=== PATIENT | male | born 1965 | race Caucasian/White ===

== ENCOUNTER 2024-08-04 14:54 | Outpatient (CLI) | payer OTHER, SELFPAY ==
--- NOTE | ~2024-08-04 | XR_ITS ---
CHEST RADIOGRAPH, PA AND LATERAL CLINICAL HISTORY: Other forms of dyspnea . COMPARISON: None available TECHNIQUE: PA and lateral views of the chest. FINDINGS The cardiomediastinal silhouette is unremarkable. Increased interstitial markings are identified bilaterally, findings suggesting mild pulmonary vascul ar congestion. The lungs are otherwise clear. IMPRESSION: Mild pulmonary vascular congestion without focal infiltrate or effusion. Reviewed, dictated and finalized at location A.
== END 2024-08-04 14:55 | disposition home or self-care (01) ==
LOC: MICIMG 15:03
PROVIDERS: PCP Internal Medicine; Visit Provider Internal Medicine
DX: R06.09 Other forms of dyspnea (principal)
CPT/HCPCS: 71046

== ENCOUNTER 2024-09-01 14:32 | Outpatient (CLI) | payer OTHER, SELFPAY ==
--- NOTE | 2024-09-01 | ECHO_ITS ---
Patient Info Name: eJlani Childers Age: 59 years : 1965 Gender: Male Ht: 72 in Wt: 230 lbs BSA: 2.33 m2 HR: 91 bpm BP: 130 / 95 mmHg Heart Rhythm: Sinus Rhythm Technical Quality: Good Exam Date: 09/01/2024 2:51 PM Exam Location: Echo Lab Patient Status: Outpatient Admit Date: 09/01/2024 Staff Ordering Physician: Angie, Varsha Rosa MD [employer] Agent: Shadia Saunders RDCS Attending Provider: Angie, Varsha Rosa MD Referring Physician: Dereje NOVOA; Exam Type: CA echo dop color flow w con Study Info Indications - NINA Complete two-dimensional, color flow and Doppler transthoracic echocardiogram is performed with contrast to opacify the left ventricle and to improve the deliniation of the left ventricle endocardial borders. Contrast/Agitated Saline Contrast/Ag. Saline: Definity Amount: 2.00 ml Administered By: Shadia Saunders RDCS Existing IV Access: No New IV Access: Left Site Condition: IV removed Summary 1. Left ventricular chamber dimension is severely enlarged. 2. Left ventricular systolic function is severely reduced, estimated at 20-25%. 3. Right ventricular systolic function is normal. 4. Left atrial chamber dimension is severely enlarged. 5. Right atrial chamber dimension is moderately enlarged. 6. There is mild mitral valve regurgitation. 7. There is mild tricuspid valve regurgitation. 8. Pulmonary hypertension, estimated pulmonary arterial systolic pressure is 66 mmHg. Left Ventricle Left ventricular chamber dimension is severely enlarged. Left ventricular systolic function is severely reduced, estimated at 20-25%. There is no increased left ventricular wall thickness. Right Ventricle Right ventricular chamber dimension is normal. Right ventricular systolic function is normal. Left Atria Left atrial chamber dimension is severely enlarged. Right Atria Right atrial chamber dimension is moderately enlarged. Atrial Septum Intact interatrial septum visualized by color flow imaging. Aortic Valve The aortic valve is probable trileaflet. There is no aortic valve stenosis. There is trace aortic valve regurgitation. There is mild aortic valve calcification. Pulmonic Valve The pulmonic valve is not well visualized. There is trace pulmonic regurgitation. Mitral Valve There is mild mitral valve regurgitation. Tricuspid Valve There is mild tricuspid valve regurgitation. Pulmonary hypertension, estimated pulmonary arterial systolic pressure is 66 mmHg. Pericardium/Pleural There is no pericardial effusion. Inferior Vena Cava Dilated inferior vena cava with <50% collapse upon inspiration consistent with elevated right atrial pressure, 15 mmHg. Aorta The aortic root size at the sinus of Valsalva is normal. Left Ventricular Outflow Tract Name Value Normal LVOT 2D LVOT Diameter 2.24 cm LVOT Doppler LVOT Peak Gradient 1 mmHg LVOT Mean Gradient 0 mmHg LVOT VTI 6.74 cm LVOT VTI/AV VTI Ratio 0.63 LVOT Stroke Volume 26.61 ml LVOT CO 2.39 l/min LVOT CI 1.03 L/min/m2 Pulmonic Valve Name Value Normal RVOT Doppler RVOT Peak Gradient 1 mmHg PV Doppler PV Peak Gradient 1 mmHg Tricuspid Valve Name Value Normal TV Regurgitation Doppler TR Peak Velocity 355.44 cm/s TR Peak Gradient 51 mmHg Estimated PAP/RSVP RA Pressure 15 mmHg <=5 PA Systolic Pressure 66 mmHg <36 RV Systolic Pressure 66 mmHg <36 Aorta Name Value Normal Ascending Aorta Ao Root Diameter (MM) 3.10 cm Ao Root Diam Index (MM) 1.33 cm/m2 Aortic Valve Name Value Normal AV Doppler AV Peak Velocity 77.50 cm/s AV Peak Gradient 2 mmHg AV Mean Gradient 1 mmHg AV VTI 10.66 cm AV Area (Cont Eq VTI) 2.50 cm2 >=3.00 AV Area (Cont Eq Pedro) 2.37 cm2 AV Regurgitation 2D LVOT Area 3.95 cm2 AV Regurgitation Doppler AR Decel Time 2 s AR Decel Rawlins 137.84 cm/s2 AR PHT 1 s Ventricles Name Value Normal LV Dimensions 2D/MM IVS Diastolic Thickness (2D) 0.90 cm 0.60-1.00 LVID Diastole (2D) 6.87 cm 4.20-5.80 LVIW Diastolic Thickness (2D) 0.90 cm 0.60-1.00 LVID Systole (2D) 6.18 cm 2.50-4.00 LVOT Diameter 2.24 cm LV Mass (2D Cubed) 272.26 g 88.00-224.00 LV Mass Index (2D Cubed) 0.01 g/cm2 0.00-0.01 Relative Wall Thickness (2D) 0.26 LV Fractional Shortening/Ejection Fraction 2D/MM LV Fractional Shortening (2D) 10 % 25-43 LV EF (2D Teichmeccaz) 21 % 52-72 LV Diastolic Volume (4C MOD) 188.88 ml LV EF (4C MOD) 25 % LV Diastolic Volume (2C MOD) 203.62 ml LV EF (2C MOD) 17 % LV Diastolic Volume (BP MOD) 196.39 ml 62.00-150.00 LV Diastolic Volume Index (BP MOD) 0.08 l/m2 0.03-0.07 LV Systolic Volume (BP MOD) 155.86 ml 21.00-61.00 LV Systolic Volume Index (BP MOD) 0.07 l/m2 0.01-0.03 LV EF (BP MOD) 21 % 52-72 LV Diastolic Length (4C) 9.08 cm LV Systolic Length (4C) 7.99 cm LV Stroke Volume (4C MOD) 47.95 ml Atria Name Value Normal LA Dimensions LA Dimension (MM) 5.73 cm 3.00-4.10 LA Volume (4C A-L) 96.54 ml LA Volume (BP A-L) 89.23 ml RA Dimensions RA Area (4C) 23.17 cm2 <=18.00 Report Signatures
--- OUTSIDE RECORDS SUMMARY | 2024-09-01 14:40 | XMS_ITS | Encounter Summary ---
Author Organization [facility] Address [address] [place] [address] Care Team Providers Care Ground Crewman Aircraft Support Name Role Phone Varsha Reyez MD Primary Care Provider [phone] Encounter Details Date Type Department Care Team (Late st Contact Info) Description 08/06/2024 Results Follow-Up [facility] D[facility]ly [place] [address] [place] [place] [address] Varsha Reyez MD [address] [place] [address] XR CHEST PA AND LATERAL 2 VW, VITAMIN D 25 HYDROXY, CBC WITH DIFFERENTIAL, BASIC METABOLIC PANEL Social History Tobacco Use Types Packs/Day Years Used Date Smoking Tobacco: Former Cigarettes 1 20.4 0 04/23/2004 - 04/23/1979 Smokeless Tobacco: Former Chew Quit: 04/23/2004 Comments:1 can every few day s x few year Alcohol Use Standard Drinks/Week Comments Yes 30 (1 standard drink = 0.6 oz pure alcohol) drinks a few beers after work, 6-12 on weekend days Sex and Gender Information Value Date Recorded Sex Assigned at Not on file 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 Reyez. documented in this encounter Plan of Treatment Upcoming Encounters Date Type Department Care Team (Late st Contact Info) Description 09/04/2024 8:00 AM CDT Office Visit [facility] Drizly [place] [address] [place] [address] Varsha Reyez MD [address] [place] [address] 09/25/2024 8:00 AM CDT Procedure visit [facility] Drizly [place] [address] [place] [address] documented as of this encounter Visit Diagnoses Not on filedocumented in this encounter Care Teams Ground Crewman Aircraft Support Relationship Specialty Start Date End Date Varsha Reyez MD [address] [place] [address] PCP - General Internal Medicine 10/04/23 documented as of this encounter
--- OUTSIDE RECORDS SUMMARY | 2024-09-01 14:40 | XMS_ITS | Clinical Summary ---
Author Organization [facility] [employer] [place] Address [address] [address] Care Team Providers Care Foxer Name Role Phone Varsha Reyez MD Primary Care Provider [phone] Allergies No known active allergies Medications loratadine (CLARITIN) 10 mg tablet Take 10 mg by mouth daily. Active ergocalcifero l (Vitamin D2) 50,000 unit capsuleIndica tions:Thrombo cytopenia Take 1 Capsule (50,000 Units) by mouth every 7 days for 8 doses. 8 Capsule 025 2024 Active furosemide (Lasix) 20 mg tabletIndicat ions:Dyspnea on exertion Take 1 Tablet (20 mg) by mouth daily. 30 Tablet 1 Active OTHER Take 5,000 mg by mouth daily at bedtime. MORINGA vitamin 2024 Discontinued furosemide (Lasix) 20 mg tabletIndicat ions:Dyspnea on exertion Take 1 Tablet (20 mg) by mouth see administration instructions. 30 Tablet 1 025 2024 Discontinued(R eorder) Active Problems Problem Noted Date Diagnosed Date Thrombocytopenia 12/27/2023 Elevated hematocrit 12/27/2023 Encounters Date Type Department Care Team Description 08/18/2024 Telephone [facility] [place] [address] [place] [address] Shira Marti, DAWIT Pharmacy Call 08/15/2024 7:30 AM CDT Office Visit [facility] [place] [address] [place] [address] Varsha Reyez MD Dyspnea on exertion (Primary Dx); Thrombocytopenia; Alcohol consumption heavy; Claudication of both lower extremities 08/14/2024 7:40 AM CDT Procedure visit [facility] [place] [address] [place] [address] Thrombocytopenia; Medication monitoring encounter 08/07/2024 11:00 AM CDT Office Visit [facility] [place] [address] [place] [address] Varsha Reyez MD Dyspnea on exertion (Primary Dx); Medication monitoring encounter 08/06/2024 Results Follow-Up [facility] [place] [address] [place] [address] Varsha Reyez MD XR CHEST PA AND LATERAL 2 VW, VITAMIN D 25 HYDROXY, CBC WITH DIFFERENTIAL, BASIC METABOLIC PANEL 08/05/2024 Orders Only [facility] [place] [address] [place] [address] Lise Eason Dyspnea on exertion 07/28/2024 Results Follow-Up [facility] [place] [address] [place] [address] Shira Marti, ANP FIBRINOGEN QUANTITATIVE, THROMBIN TIME, COMPREHENSIVE METABOLIC PANEL, Additional followed-up results: 3 07/24/2024 11:00 AM CDT Procedure visit [place] [address] [place] [address] Issue of repeat prescription for medication (Primary Dx) 07/21/2024 Results Follow-Up [facility] [place] [address] [place] [address] Varsha Reyez MD TSH, LIPID PANEL, VITAMIN D 25 HYDROXY, URINALYSIS WITH REFLEX MICROSCOPIC 07/17/2024 9:00 AM CDT Office Visit [facility] [place] [address] [place] [address] Screening for condition; Dark urine; Thrombocytopenia 07/16/2024 1:00 PM CDT Office Visit [facility] [place] [address] [place] [address] Varsha Reyez MD Dark urine (Primary Dx); Dyspnea on exertion; Thrombocytopenia; Screening for condition; Bilateral hearing loss, unspecified hearing loss type; Tinnitus of both ears 07/01/2024 External Device Data [facility] ABSTRACTION Provider, Abstract 07/01/2024 External Device Data [place] ABSTRACTION Provider, Abstract from Last 3 Months Immunizations Immunization Administration Dates Next Due (ADACEL/BOOSTRIX)(10 YR UP) TDAP VACCINE, 0.5ML, IM 12/26/2023 Family History Medical History Relation Name Comments No Known Problems Brother 1 Diabetes Father Alzheimer's Disease Mother Relation Name Status Comments Brother 1 Alive Brother 2 (Age 58) in eepbig drinker and smoker Brother 3 (Age 62) hepatitis from blood transfusion- had liver and kidney transplant Father (Age 88) dialysis- unknown cuase of kidney faillure Maternal Grandfather Maternal Grandmother Mother (Age 88) Paternal Grandfather Paternal Grandmother Son 1 Alive Son 2 Alive Son 3 Alive Son 4 Alive Social History Tobacco Use Types Packs/Day Years Used Date Smoking Tobacco: Former Cigarettes 1 20.4 0 04/23/2004 - 04/23/1979 Smokeless Tobacco: Former Chew Quit: 04/23/2004 Tobacco Cessation:Counseling Given: Not Answered Comments:1 can every few days x few year Alcohol Use Standard Drinks/Week Comments Yes 30 (1 standard drink = 0.6 oz pure alcohol) drinks a few beers after work, 6-12 on weekend days Sex and Gender Information Value Date Recorded Sex Assigned at Not on file Legal Sex Male 3:30 AM [employer] Gender Identity Not on file Sexual Orientation Not on file Last Filed Vital Signs Vital Sign Reading Time Taken Comments Blood Pressure 126/76 08/15/2024 7:45 AM CDT Pulse 77 08/15/2024 7:29 AM CDT Temperature 36.7 C (98.1 F) 08/15/2024 7:29 AM CDT Respiratory Rate 18 08/15/2024 7:29 AM CDT Oxygen Saturation 92% 08/15/2024 7:29 AM CDT Inhaled Oxygen Concentration - - Weight 103.9 kg (229 lb) 08/15/2024 7:29 AM CDT Height 180.3 cm (5' 11 ) 08/15/2024 7:29 AM CDT Body Mass Index 31.94 08/15/2024 7:29 AM CDT Plan of Treatment Upcoming Encounters Date Type Department Care Team (Late st Contact Info) Description 09/04/2024 8:00 AM CDT Office Visit [facility] [place] [address] [place] [address] Varsha Reyez MD [address] [place] [address] 09/25/2024 8:00 AM CDT Procedure visit [facility] [place] [address] [place] [address] Health Maintenance Due Date Last Done Comments HEPATITIS B VACCINES (1 of 3 - 19+ 3-dose series) 03/23 FIT-DNA Q 3 years 2011 FIT/FOBT Q 1 year 2011 Flex Sig/CT Colonography Q 5 years 2011 ZOSTER VACCINE (1 of 2) 2016 INFLUENZA VACCINE (#1) 2023 Preventative Visit- Commercial 04/23/2024 10/04/2023 Pre-Diabetes and Diabetes Screening 12/25/202612/25 COLORECTAL SCREENING 07/24/2031 07/23/2021 Colorectal Cancer Screening 07/24/2031 DTAP/TDAP/TD VACCINES (2 - Td or Tdap) 12/25/2033 Procedures Procedure Name Priority Date/Time Associated Diagnosis Comments BASIC METABOLIC PANEL Routine 08/14/2024 7:32 AM CDT Medication monitoring encounter CBC WITH DIFFERENTIAL Routine 08/14/2024 7:32 AM CDT Thrombocytopenia VITAMIN D 25 HYDROXY Routine 08/14/2024 7:32 AM CDT Thrombocytopenia XR CHEST PA AND LATERAL 2 VW Routine 08/04/2024 Dyspnea on exertion EXTRA TUBE Routine 07/17/2024 9:00 AM CDT CBC WITH DIFFERENTIAL Routine 07/17/2024 9:00 AM CDT Thrombocytopenia SEDIMENTATION RATE Routine 07/17/2024 9: 00 AM CDT Thrombocytopenia PT AND APTT Routine 07/17/2024 9:00 AM CDT Thrombocytopenia COMPREHENSIVE METABOLIC PANEL Routine 07/17/2024 9:00 AM CDT Thrombocytopenia THROMBIN TIME Routine 07/17/2024 9:00 AM CDT Thrombocytopenia FIBRINOGEN QUANTITATIVE Routine 07/17/2024 9:00 AM CDT Thrombocytopenia URINALYSIS W/REFLEX MICROSCOPIC Routine 07/17/2024 9:00 AM CDT Dark urine VITAMIN D 25 HYDROXY Routine 07/17/2024 9:00 AM CDT Screening for condition LIPID PANEL Routine 07/17/2024 9:00 AM CDT Screening for condition TSH Routine 07/17/2024 9:00 AM CDT Screening for condition HEMOGLOBIN A1C Routine 12/26/2023 8:14 AM CDT Elevated fasting glucose from Last 3 Months or Most Recently Relevant to Health Maintenance Results * (ABNORMAL) CBC WITH DIFFERENTIAL (08/14/2024 7:32 AM CDT) Only the most recent of2 resultswithin the time period is included. WBC 7.3 3.8 - 10.8 Thousand/ uL [facility] RBC 4.99 4.20 - 5.80 Million/u L [facility] HEMOGLOBIN 15.8 13.2 - 17.1 g/dL [facility] HEMATOCRIT 48.5 38.5 - 50.0 % [facility] MCV 97.2 80.0 - 100.0 fL [facility] MCH 31.7 27.0 - 33.0 pg [facility] MCHC 32.6 32.0 - 36.0 g/dL [facility] Comment: For adults, a slight decrease in the calculated MCHC value (in the range of 30 to 32 g/dL) is most likely not clinically significant; however, it should be interpreted with caution in correlation with other red cell parameters and the patient's clinical condition. RDW 13.0 11.0 - 15.0 % [facility] PLATELETS 125(L) 140 - 400 Thousand/ uL [facility] MPV 12.4 7.5 - 12.5 fL [facility] NEUTROPHIL ABSOLUTE 3,884 1,500 - 7,800 cells/uL [facility] LYMPHOCYTE ABSOLUTE 2,358 850 - 3,900 cells/uL [facility] MONOCYTE ABSOLUTE 715 200 - 950 cells/uL [facility] EOSINOPHIL ABSOLUTE 285 15 - 500 cells/uL [facility] BASOPHILS ABSOLUTE 58 0 - 200 cells/uL [facility] NEUTROPHIL 53.2 % Abdoul Sanchez-S antoine Pain[facility] LYMPHOCYTES 32.3 % [facility] MONOCYTE 9.8 % [facility] EOSINOPHILS 3.9 % [facility] BASOPHILS 0.8 % [facility] Comment: Test Performed at: [facility] [address] [place] [address] Elsy Garcia Blood 08/14/2024 7:32 AM CDT 08/15/2024 1:03 AM CDT us Varsha Reyez MD HEMATOLOGY ORDERABLES Final Re sult [facility] [phone] [facility] [place] [address] [place] [address] * (ABNORMAL) VITAMIN D 25 HYDROXY (08/14/2024 7:32 AM CDT) Only the most recent of2 resultswithin the time period is included. Pathologist [facility] VITAMIN D, 25 OH, TOTAL 29(L) 30 - 100 ng/mL [facility] Comment: Vitamin D Status 25-OH Vitamin D: Deficiency: <20 ng/mL Insufficiency: 20 - 29 ng/mL Optimal: > or = 30 ng/mL For 25-OH Vitamin D testing on patients on D2-supplementation and patients for whom quantitation of D2 and D3 fractions is required, the QuestAssureD(TM) 25-OH VIT D, (D2,D3), LC/MS/MS is recommended: order code 82506 (patients >2yrs). See Note 1 Note 1 For additional information, please refer to http://education.Incoming Media/faq/JZZ699 (This link is being provided for informational/ educational purposes only.) Test Performed at: [facility] [address] [place] [address] Elsy Garcia MD Blood 08/14/2024 7:32 AM CDT 08/15/2024 1:01 AM CDT us Varsha Reyez MD CHEMISTRY ORDERABLES Final Res ult [facility] [phone] [facility] [address] [place] [phone] * (ABNORMAL) BASIC METABOLIC PANEL (08/14/2024 7:32 AM CDT) [facility] GLUCOSE 112(H) 65 - 99 mg/dL [facility] Comment: Fasting reference interval For someone without known diabetes, a glucose value between 100 and 125 mg/dL is consistent with prediabetes and should be confirmed with a follow-up test. BUN 18 7 - 25 mg/dL [facility] CREATININE 1.19 0.70 - 1.30 mg/dL [facility] GFR 71 > OR = 60 mL/min/1. 73m2 [facility] BUN/CREAT RATIO SEE NOTE: 6 - 22 (calc) [facility] Comment: Not Reported: BUN and Creatinine are within reference range. SODIUM 136 135 - 146 mmol/L [facility] POTASSIUM 4.6 3.5 - 5.3 mmol/L [facility] CHLORIDE 103 98 - 110 mmol/L [facility] CO2 25 20 - 32 mmol/L [facility] CALCIUM 9.0 8.6 - 10.3 mg/dL [facility] Comment: Test Performed at: [place] [address] [place] [address] Elsy Garcia Blood 08/14/2024 7:32 AM CDT 08/15/2024 1:02 AM CDT us Varsha Reyez MD CHEMISTRY ORDERABLES Final Res ult [facility] [phone] [place] [address] [place] [address] * XR CHEST PA AND LATERAL 2 VW (08/04/2024) Anatomical Region Laterality Modality Chest Other us Varsha Reyez MD DIAGNOSTIC IMAGING ORDERABLES Final Result * EXTRA TUBE (07/17/2024 9:00 AM CDT) COMMENT CHEMISTRY [facility] Comment: An extra specimen was received with no test requested. The specimen will be maintained in storage in case additional testing is needed. Please call the client service department for further assistance. SPECIMEN TYPE Frozen Whole Blood [facility] Comment: Test Performed at: [facility] [address] [facility] [place] [address] Elsy Garcia MD 07/17/2024 9:00 AM CDT 07/18/2024 4:17 AM CDT us Shira PASTOR CHEMISTRY ORDERABLES Final R esult [facility] [phone] [facility] [address] [facility] [place] [place] [address] * PT AND APTT (07/17/2024 9:00 AM CDT) Pathologist [facility] PTT 29 23 - 32 sec [facility] Comment: This test has not been validated for monitoring unfractionated heparin therapy. For testing that is validated for this type of therapy, please refer to the Heparin Anti-Xa assay (test code 40023). For additional information, please refer to http://education.Incoming Media/faq/XDN504 (This link is being provided for informational/educational purposes only.) INR 1.0 [facility] [facility] Comment: Reference Range 0.9-1.1 Moderate-intensity Warfarin Therapy 2.0-3.0 Higher-intensity Warfarin Therapy 3.0-4.0 PROTIME 11.1 9.0 - 11.5 sec [facility] Comment: Test Performed at: [facility] [address] [place] [address] Elsy Garcia MD Blood 07/17/2024 9:00 AM CDT 07/18/2024 4:17 AM CDT us Shira Marti ANP HEMATOLOGY ORDERABLES Final Result [facility] [phone] [facility] [address] * URINALYSIS WITH REFLEX MICROSCOPIC (07/17/2024 9:00 AM CDT) Pathologist [facility] COLOR UA YELLOW YELLOW [facility] CLARITY UA CLEAR CLEAR [facility] SPECIFIC GRAVITY UA 1.017 1.001 - 1.035 [facility] PH UA 5.5 5.0 - 8.0 [facility] GLUCOSE UA NEGATIVE NEGATIVE [facility] BILIRUBIN UA NEGATIVE NEGATIVE [facility] KETONES UA NEGATIVE NEGATIVE [facility] BLOOD UA NEGATIVE NEGATIVE [facility] PROTEIN UA NEGATIVE NEGATIVE [facility] NITRITE UA NEGATIVE NEGATIVE [facility] LEUKOCYTE ESTERASE UA NEGATIVE NEGATIVE [facility] Comment: Test Performed at: [facility] [address] [place] [address] Elsy Garcia MD Urine URINE SPECIMEN OBTAINED BY CLEAN CATCH PROCEDURE / Unknown 07/17/2024 9:00 AM CDT 07/18/2024 4:25 AM CDT us Varsha Reyez MD URINE ORDERABLES Final Result Performing Organization Address City/[facility]/ZIP Co de Phone Number [facility] [phone] [facility] [address] [facility] [place] [address] * THROMBIN TIME (07/17/2024 9:00 AM CDT) THROMBIN TIME 18 13 - 19 sec [facility] Comment: Test Performed at: [facility] [id number] [facility] [address] [place] Josh Queen M.D.,PhD Blood 07/17/2024 9:00 AM CDT 07/18/2024 4:17 AM CDT us Shira PASTOR HEMATOLOGY ORDERABLES Final Result Performing Organization Address [facility]/ZIP Co de Phone Number [facility] [phone] [facility] [id number] [facility] [place], [place] * SEDIMENTATION RATE (07/17/2024 9:00 AM CDT) ESR (SEDIMENTATION RATE) 6 < OR = 20 mm/h [facility] Comment: Test Performed at: [facility] [address] [place] [address] Elsy Garcia MD Blood 07/17/2024 9:00 AM CDT 07/18/2024 4:17 AM CDT us Shira Marti ANP HEMATOLOGY ORDERABLES Final Result [facility] [phone] [facility] [address] * FIBRINOGEN QUANTITATIVE (07/17/2024 9:00 AM CDT) FIBRINOGEN 381 175 - 425 mg/dL [facility] Comment: Test Performed at: [facility] [address] [place] [address] Elsy Garcia MD Blood 07/17/2024 9:00 AM CDT 07/18/2024 4:17 AM CDT us Shira Marti ANP HEMATOLOGY ORDERABLES Final Result [facility] [phone] [facility] [address] [place] [phone] * TSH (07/17/2024 9:00 AM CDT) Pathologist [facility] TSH 3.67 0.40 - 4.50 mIU/L [facility] Comment: Test Performed at: [facility] [address] Elsy Garcia MD Blood 07/17/2024 9:00 AM CDT 07/18/2024 4:27 AM CDT us Varsha Reyez MD CHEMISTRY ORDERABLES Final Res ult [facility] [phone] [facility] [address] * (ABNORMAL) LIPID PANEL (07/17/2024 9:00 AM CDT) CHOLESTEROL 138 <200 mg/dL [facility] HDL 30(L) > OR = 40 mg/dL [facility] TRIGLYCERIDE 82 <150 mg/dL [facility] LDL CALCULATED 91 mg/dL (calc) [facility] Comment: Reference range: <100 Desirable range <100 mg/dL for primary prevention; <70 mg/dL for patients with CHD or diabetic patients with > or = 2 CHD risk factors. LDL-C is now calculated using the Brian-Sheikh calculation, which is a validated novel method providing better accuracy than the Friedewald equation in the estimation of LDL-C. Brian SS et al. NICKIE. 2013;310(19): 2784-1925 (http://education.Incoming Media/faq/MOD316) CHOL/HDL RATIO 4.6 <5.0 (calc) [facility] NON-HDL CHOLESTEROL 108 <130 mg/dL (calc) [facility] Comment: For patients with diabetes plus 1 major ASCVD risk factor, treating to a non-HDL-C goal of <100 mg/dL (LDL-C of <70 mg/dL) is considered a therapeutic option. Test Performed at: [facility] [address] [place] [address] Elsy Garcia MD Blood 07/17/2024 9:00 AM CDT 07/18/2024 4:27 AM CDT us Varsha Reyez MD CHEMISTRY ORDERABLES Final Res ult [facility] [phone] [facility] [address] [place] [address] * COMPREHENSIVE METABOLIC PANEL (07/17/2024 9:00 AM CDT) GLUCOSE 93 65 - 99 mg/dL [facility] Comment: Fasting reference interval BUN 23 7 - 25 mg/dL [facility] CREATININE 1.13 0.70 - 1.30 mg/dL [facility] GFR 75 > OR = 60 mL/min/1. 73m2 [facility] BUN/CREAT RATIO SEE NOTE: 6 - 22 (calc) [facility] Comment: Not Reported: BUN and Creatinine are within reference range. SODIUM 138 135 - 146 mmol/L [facility] POTASSIUM 4.5 3.5 - 5.3 mmol/L [facility] CHLORIDE 104 98 - 110 mmol/L [facility] CO2 26 20 - 32 mmol/L [facility] CALCIUM 8.9 8.6 - 10.3 mg/dL [facility] TOTAL PROTEIN 7.0 6.1 - 8.1 g/dL [facility] ALBUMIN 4.5 3.6 - 5.1 g/dL [facility] GLOBULIN 2.5 1.9 - 3.7 g/dL (calc) [facility] ALBUMIN/GLOBULIN RATIO 1.8 1.0 - 2.5 (calc) [facility] BILIRUBIN TOTAL 0.8 0.2 - 1.2 mg/dL [facility] ALKALINE PHOSPHATASE 69 35 - 144 U/L [facility] AST 23 10 - 35 U/L [facility] ALT 28 9 - 46 U/L [facility] Comment: Test Performed at: [facility] [address] [place] [address] Elsy Garcia MD Blood 07/17/2024 9:00 AM CDT 07/18/2024 4:17 AM CDT us Shira Marti [facility] CHEMISTRY ORDERABLES Final R esult [facility] [phone] [facility] [address] [address] [facility] [place] [address] * HEMOGLOBIN A1C (12/26/2023 8:14 AM CDT) HEMOGLOBIN A1C 5.3 <5.7 % of total Hgb [facility] Comment: For the purpose of screening for the presence of diabetes: <5.7% Consistent with the absence of diabetes 5.7-6.4% Consistent with increased risk for diabetes (prediabetes) > or =6.5% Consistent with diabetes This assay result is consistent with a decreased risk of diabetes. Currently, no consensus exists regarding use of hemoglobin A1c for diagnosis of diabetes in children. According to [place] Diabetes Association (ADA) guidelines, hemoglobin A1c <7.0% represents optimal control in non- diabetic patients. Different metrics may apply to specific patient populations. Standards of Medical Care in Diabetes(ADA). ESTIMATED AVERAGE GLUCOSE (MG/DL) 105 mg/dL [facility] ESTIMATED AVERAGE GLUCOSE (MMOL/L) 5.8 mmol/L [facility] Comment: This test was performed on the Power rick c503 platform. Effective 07/09/23, a change in test platforms from the [employer] to the Power rick c503 may have shifted HbA1c results compared to historical results. Based on laboratory validation testing conducted at [facility], the Power platform relative to the Willis platform had an average increase in HbA1c value of < or = 0.3%. This difference is within accepted variability established by the National Glycohemoglobin Standardization Program. Note that not all individuals will have had a shift in their results and direct comparisons between historical and current results for testing conducted on different platforms is not recommended. Test Performed at: [facility] [address] [place] [address] MadelineJorge Walden Blood 12/26/2023 8:14 AM CDT 12/26/2023 11:36 PM CDT us Shira Marti [facility] CHEMISTRY ORDERABLES Final R esult [facility] [phone] [facility] [address] [address] [phone] from Last 3 Months or Most Recently Relevant to Health Maintenance Insurance [employer] OPEN ACCESS [facility] OPEN ACCESS Care Teams Foxer Relationship Specialty Start Date End Date Varsha Reyez MD [address] [place] [phone] PCP - General Internal Medicine 10/04/23
--- OUTSIDE RECORDS SUMMARY | 2024-09-01 14:40 | XMS_ITS | Encounter Summary ---
Author Organization [facility] Address [address] [place] [address] Care Team Providers Care Route Sales Manager Name Role Phone Varsha Reyez MD Primary Care Provider [phone] Reason for Visit * Reason Onset Date Comments Labs Only 07/21/2024 Encounter Details Date Type Department Care Team (Late st Contact Info) Description 07/21/2024 Results Follow-Up [facility] [place] [address] [place] [address] Varsha Reyez MD [address] [place] [address] TSH, LIPID PANEL, VITAMIN D 25 HYDROXY, URINALYSIS WITH REFLEX MICROSCOPIC Social History Tobacco Use Types Packs/Day Years [...] on file 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 Pt is coming in tomorrow for chest xray and discuss setting up appt * Result Encounter Note - Lise Eason - 07/25/2024 1:22 PM CDT Called and informed pt who voiced understanding. Pt stated now more concerned about his breathing and being winded very easily. Per last OV if CBC was normal, chest xray would be considered. Pt wouldlike to have done. * Telephone Encounter - Lise Eason - 07/24/2024 8:11 AM CDT Called pt regarding labs. Pt still very concerned of dark urine. Wanting to know if anything else could cause this. Patient had PSA drawn 11/13, free PSA was low. Could this be the reason? Patient requesting PSA draw if necessary. documented in this encounter Plan of Treatment Upcoming Encounters Date Type Department Care Team (Late st Contact Info) Description 09/04/2024 8:00 AM CDT Office Visit [facility] [place] [address] [place] [address] Varsha Reyez MD [address] [place] [address] 09/25/2024 8:00 AM CDT Procedure visit [facility] [place] [address] [place] [id number] documented as of this encounter Results * (ABNORMAL) VITAMIN D 25 HYDROXY (08/14/2024 7:32 AM CDT) VITAMIN D, 25 OH, TOTAL 29(L) 30 - 100 ng/mL [facility] Comment: Vitamin D Status 25-OH Vitamin D: Deficiency: <20 ng/mL Insufficiency: 20 - 29 ng/mL Optimal: > or = 30 ng/mL For 25-OH Vitamin D testing on patients on D2-supplementation and patients for whom quantitation of D2 and D3 fractions is required, the Quest[facility](TM) 25-OH VIT D, (D2,D3), LC/MS/MS is recommended: order code 83344 (patients >2yrs). See Note 1 Note 1 For additional information, please refer to http://education.[employer]/faq/XQF652 (This link is being provided for informational/ educational purposes only.) Test Performed at: [facility] [address] [place] [address] Elsy Garcia MD Blood 08/14/2024 7:32 AM CDT 08/15/2024 1:01 AM CDT us Varsha Reyez MD CHEMISTRY ORDERABLES Final Res ult [facility] [phone] [place] [address] [place] [address] * (ABNORMAL) CBC WITH DIFFERENTIAL (08/14/2024 7:32 AM CDT) WBC 7.3 3.8 - 10.8 Thousand/ uL [facility] RBC 4.99 4.20 - 5.80 Million/u L [facility] HEMOGLOBIN 15.8 13.2 - 17.1 g/dL [facility] HEMATOCRIT 48.5 38.5 - 50.0 % [facility] MCV 97.2 80.0 - 100.0 fL [facility] MCH 31.7 27.0 - 33.0 pg [facility] MCHC 32.6 32.0 - 36.0 g/dL [facility] Comment: For adults, a slight decrease in the calculated MCHC value (in the range of 30 to 32 g/dL) is most likely not clinically significant; however, it should be interpreted with caution in correlation with other red cell parameters and the patient's clinical condition. RDW 13.0 11.0 - 15.0 % [facility] PLATELETS 125(L) 140 - 400 Thousand/ uL [facility] MPV 12.4 7.5 - 12.5 fL [facility] NEUTROPHIL ABSOLUTE 3,884 1,500 - 7,800 cells/uL [facility] LYMPHOCYTE ABSOLUTE 2,358 850 - 3,900 cells/uL [facility] MONOCYTE ABSOLUTE 715 200 - 950 cells/uL [facility] EOSINOPHIL ABSOLUTE 285 15 - 500 cells/uL [facility] BASOPHILS ABSOLUTE 58 0 - 200 cells/uL [facility] NEUTROPHIL 53.2 % [facility] LYMPHOCYTES 32.3 % [facility] MONOCYTE 9.8 % [facility] EOSINOPHILS 3.9 % [facility] BASOPHILS 0.8 % [facility] Comment: Test Performed at: [facility] [place] [address] [place] [phone] Elsy Garcia Blood 08/14/2024 7:32 AM CDT 08/15/2024 1:03 AM CDT us Varsha Reyez MD HEMATOLOGY ORDERABLES Final Re sult [facility] [phone] [place] [address] [address] [place] [phone] * XR CHEST PA AND LATERAL 2 VW (08/04/2024) Anatomical Region Laterality Modality Chest Other us Varsha Reyez MD DIAGNOSTIC IMAGING ORDERABLES Final Result documented in this encounter Visit Diagnoses Diagnosis Thrombocytopenia- Primary Thrombocytopenia, unspecified Dyspnea on exertion Other dyspnea and respiratory abnormality documented in this encounter Care Teams Route Sales Manager Relationship Specialty Start Date End Date Varsha Reyez MD [address] [place] [address] [place] [address] PCP - General Internal Medicine 10/04/23 documented as of this encounter
[2024-09-01] MEDS: PERFLUTREN LIPID MICROSPHERES 1.5 ML VIAL DILUTED TO 10 ML TOTAL VOLUME IV PUSH (15:41)
--- NOTE | 2024-09-01 16:07 | IVDEFINITY ---
Prior to administration of IV Definity the patient was educated on the risks and benefits of the imaging enhancing agent including potential adverse side effects. The patient verbalized understanding. Allergies were verified. No exclusion criteria were identified and at least one of the following inclusion criteria were met: 1) physician request, 2) patient technically difficult to image (per the [place] [employer] guidelines of two or more segments not discernable within the apical view), or 3) questionable left ventricular function. ?
== END 2024-09-01 14:33 | disposition home or self-care (01) ==
PROVIDERS: PCP Internal Medicine; Visit Provider Internal Medicine
DX: R06.09 Other forms of dyspnea (principal); I36.1 Nonrheumatic tricuspid (valve) insufficiency; I34.0 Nonrheumatic mitral (valve) insufficiency
CPT/HCPCS: C8929; Q9957